=== PATIENT | male | born 1940 | race Caucasian/White ===

== ENCOUNTER 2018-03-27 08:37 | Day surgery (SDC) | payer OTHER ==
[~2018-03-27] VITALS: Ht 172.7 cm; Wt 75.3 kg
[~2018-03-27 08:37] MED LIST: ALBU90OI INH; ALBU90OI6 INH; ANORO ELLIPTA1 EACH INH; ASPI325 PO; ASPI81CH PO; ASPI81EC PO; ATOR10 PO; AZIT250 PO; Accuneb0.63 MG/3; Betapace120 MG PO; CALCA500CH PO; CEFD300 PO; DABI150C PO; DABI75 PO; DILT30 PO; FISH OIL 1,0001 EAC1 PO; FISH1000 PO; FLUSAL2505 INH; FURO40 PO; Hair, Skin & N1 EACH PO; IPRAIS; LISI20 PO; LISINOPRIL-? DOSE; LOSA50 PO; Lisinopril2.5 MG PO; MAGOXI400 PO; METO100ER PO; METO25 PO; MULTI VITAMIN1 EACH PO; MULVITMIND PO; POTCHL10ER PO; PRED10 PO; PRED20 PO; PROBIOTIC1 EAC3 PO; RANI150 PO; REPATHA SU140 MG/1 M SC; ROFL500T PO; ROSU10TA PO; SOTO80 PO; SPIR25 PO; TIOT18 IH; TRIPLE FLEX CA1 EACH PO; TUMS200 MG PO
--- NOTE | 2018-03-27 09:01 | NUR ---
History, Chart, Medications and Allergies reviewed before start of procedure. Patient confirms NPO status and agrees with scheduled surgery. Lungs clear T/O to Auscultation THOUGH DECREASED THROUGHOUT, 2L O2 HOME IN PLACE. Patient reports completing Chlorhexadine shower X2 prior to admission to hospital. Pre-Op teaching done. Pt verbalizes understanding. Patient States Post-Procedure ride home has been arranged.
--- NOTE | 2018-03-27 09:40 | NUR ---
TO BEDSIDE, TRACKER EXPLAINED AND QUESTIONS ANSWERED. BELONGINGS UNDER THE GURNEY TO INCLUDE PATIENT'S HOME O2 CONCENTRATION DEVICE. NEW O2 TUBING PLACED ON PATIENT AT ADMIT. COMFORT PROVIDED FOR AND UPDATE PROVIDED FOR PATIENT, CALL LIGHT IN REACH.
--- NOTE | 2018-03-27 10:18 | NUR ---
UP TO BR FOR UNMEASURED VOID.
--- NOTE | 2018-03-27 11:09 | NUR ---
1055- FAMILY UPDATED AND COMFORT PROVIDED FOR, REFRESHMENTS PROVIDED FOR AT BEDSIDE PER REQUEST.
--- NOTE | 2018-03-27 11:29 | NUR ---
PATIENT UP TO BR FOR ANOTHER UNMEASURED VOID.
--- NOTE | 2018-03-27 11:38 | NUR ---
REPORT TO ALICIA Long FOR BREAK.
--- NOTE | 2018-03-27 14:53 | NUR ---
Discharge instructions reviewed with patient. Patient verbalizes understanding. Copy given to patient to take home. Patient up to Ambulate independently. Gait steady. Patient States Post-Procedure ride home has been arranged. Discharged via wheelchair to private car for ride home.
== END 2018-03-27 22:55 | disposition home or self-care (01) ==
LOC: ORSCMMR 08:37 → SURS 08:37 → ORD 10:00 → ORSCMMR 10:00
PROVIDERS: Surgery
PROC: 0YU60JZ Supplement Left Inguinal Region with Synthetic Substitute, Open Approach (ICD-10-PCS; principal; 2018-03-27 10:00)
DX: K40.90 Unilateral inguinal hernia, without obstruction or gangrene, not specified as recurrent (principal); I10 Essential (primary) hypertension; I48.91 Unspecified atrial fibrillation; I25.10 Atherosclerotic heart disease of native coronary artery without angina pectoris; J44.9 Chronic obstructive pulmonary disease, unspecified; Z99.81 Dependence on supplemental oxygen; E78.00 Pure hypercholesterolemia, unspecified; Z87.891 Personal history of nicotine dependence; Z79.899 Other long term (current) drug therapy
CPT/HCPCS: C1781; J0690; J2250; J3010; J7120

== ENCOUNTER 2021-06-10 10:36 | Emergency (ER) | payer OTHER ==
[~2021-06-10] VITALS: Ht 172.7 cm; Wt 72.6 kg
[2021-06-10] MEDS ORDERED: NEBIVOLOL HCL20 MG PO (10:57)
== END 2021-06-10 12:23 | disposition home or self-care (01) ==
LOC: ER 10:36
DX: S09.90XA Unspecified injury of head, initial encounter (principal); I25.2 Old myocardial infarction; I48.91 Unspecified atrial fibrillation; J43.9 Emphysema, unspecified; Z86.73 Personal history of transient ischemic attack (TIA), and cerebral infarction without residual deficits; Z87.891 Personal history of nicotine dependence; Z88.2 Allergy status to sulfonamides; Z88.1 Allergy status to other antibiotic agents; Z88.8 Allergy status to other drugs, medicaments and biological substances; Z79.899 Other long term (current) drug therapy; Z79.82 Long term (current) use of aspirin; W01.0XXA Fall on same level from slipping, tripping and stumbling without subsequent striking against object, initial encounter
CPT/HCPCS: 70450

== ENCOUNTER 2022-03-02 11:51 | Emergency (ER) | payer OTHER ==
[~2022-03-02] VITALS: Ht 172.7 cm; Wt 73.0 kg
[~2022-03-02 11:51] MED LIST changes: +NEBIVOLOL HCL20 MG PO
[2022-03-02 12:38] LABS: BASOPHILS ABSOLUTE AUTO 0.03 K/mm3 (0.00-0.23); BASOPHILS PERCENT AUTO 0 % (0-2); EOSINOPHILS PERCENT AUTO 0 % (0-6); Hematocrit 36.8 % (37.0-53.0); Hemoglobin 11.8 g/dL (13.5-17.5); IMMATURE GRAN ABSOLUTE AUTO 0.08 K/mm3 (0.00-0.10); IMMATURE GRAN PERCENT AUTO 1 % (0-1); LYMPHOCYTES ABSOLUTE AUTO 0.48 K/mm3 (0.84-5.20); LYMPHOCYTES PERCENT AUTO 4 % (21-46); MONOCYTES ABSOLUTE AUTO 0.45 K/mm3 (0.16-1.47); MONOCYTES PERCENT AUTO 4 % (4-13); Mean Corpuscular HGB 25.7 pg (26.0-34.0); Mean Corpuscular HGB Conc 32.1 g/dL (31.5-36.5); Mean Corpuscular Volume 80 fL (80-100); Mean Platelet Volume 11.1 fL (9.1-12.4); NEUTROPHILS ABSOLUTE AUTO 10.24 K/mm3 (1.96-9.15); NEUTROPHILS PERCENT AUTO 91 % (41-73); Platelet Count 257 K/mm3 (150-400); RDW Coefficient Variation 17.5 % (11.7-14.2); RDW Standard Deviation 51.2 fL (35.1-46.3); White Blood Cell Count 11.28 K/mm3 (4.00-11.30)
[2022-03-02 12:45] LABS: Source, Urine Voided
[2022-03-02 12:49] LABS: Appearance, Urine Clear (Clear); Bilirubin, Urine Neg (Neg); Blood, Urine Neg (Neg); Color, Urine Yellow (P-Yellow); Glucose Qualitative, Urine Neg (Neg); Ketones, Urine Neg (Neg); Leukocyte Esterase, Urine Neg (Neg); Nitrite, Urine Neg (Neg); Protein, Urine Neg (Neg); Urobilinogen, Urine NORM (Normal)
[2022-03-02 12:55] LABS: Albumin, Blood 2.9 g/dL (3.4-5.0); Albumin/Globulin Ratio 0.9 (0.8-1.8); Bilirubin, Total 0.9 mg/dL (0.1-1.0); Bun/Creatinine Ratio 25.5 (12.0-20.0); Calcium, Blood 9.3 mg/dL (8.5-10.1); Creatinine, Blood 1.1 mg/dL (0.60-1.20); Globulin, Blood 3.4 g/dL (2.2-4.0); Potassium, Blood 3.8 mmol/L (3.5-5.5); Total Protein, Blood 6.3 g/dL (6.4-8.2)
[2022-03-02] MEDS ORDERED: OMEP20ER (13:24)
[2022-03-02] MEDS ORDERED: POTA8 (13:25)
[2022-03-02 15:50] LABS: Base Excess Venous 9.9 mmol/L; Bicarbonate Venous 32.1 mmol/L (24.0-30.0); PCO2 Venous 52.4 mmHg (38-42); pH Blood Venous 7.42 (7.34-7.37)
[2022-03-02] MEDS ORDERED: TORSE20 PO (16:42)
[2022-03-02] MEDS ORDERED: Flomax0.4 MG PO (16:43)
== END 2022-03-02 18:33 | disposition home or self-care (01) ==
LOC: ER 11:51
PROVIDERS: Emergency Medicine; Student in an Organized Health Care Education/Training Program
DX: I50.9 Heart failure, unspecified (principal); J81.1 Chronic pulmonary edema; J44.9 Chronic obstructive pulmonary disease, unspecified; I48.91 Unspecified atrial fibrillation; D64.9 Anemia, unspecified; R55 Syncope and collapse; I25.2 Old myocardial infarction; Z87.891 Personal history of nicotine dependence; Z88.2 Allergy status to sulfonamides; Z88.1 Allergy status to other antibiotic agents; Z79.899 Other long term (current) drug therapy; Z99.81 Dependence on supplemental oxygen
CPT/HCPCS: 36415; 71045; 80053; 81003; 82803; 83880; 85025; 93005; 93010; 93970; 94640; 94664; J1940; J2930

== ENCOUNTER 2022-03-13 11:56 | Inpatient (IN) | payer OTHER ==
[~2022-03-13] VITALS: Ht 172.7 cm; Wt 77.6 kg
[~2022-03-13 11:56] MED LIST changes: +Flomax0.4 MG PO; +Lasix40 MG PO; +METO5 PO; +OMEP20ER PO; +POTA8; +TORSE20 PO
[2022-03-13] MEDS ORDERED: ATROVENT HFA12.9 GM INH (12:24)
[2022-03-13] MEDS ORDERED: ANORO ELLIPTA1 EAC1 INH (12:26)
[2022-03-13 12:45] LABS: BASOPHILS ABSOLUTE AUTO 0.04 K/mm3 (0.00-0.23); BASOPHILS PERCENT AUTO 0 % (0-2); EOSINOPHILS PERCENT AUTO 0 % (0-6); Hemoglobin 11.2 g/dL (13.5-17.5); IMMATURE GRAN ABSOLUTE AUTO 0.09 K/mm3 (0.00-0.10); IMMATURE GRAN PERCENT AUTO 1 % (0-1); LYMPHOCYTES ABSOLUTE AUTO 0.15 K/mm3 (0.84-5.20); LYMPHOCYTES PERCENT AUTO 1 % (21-46); MONOCYTES PERCENT AUTO 3 % (4-13); Mean Corpuscular HGB 25.3 pg (26.0-34.0); Mean Corpuscular HGB Conc 31.1 g/dL (31.5-36.5); Mean Corpuscular Volume 81 fL (80-100); Mean Platelet Volume 12.5 fL (9.1-12.4); NEUTROPHILS PERCENT AUTO 96 % (41-73); Platelet Count 194 K/mm3 (150-400); RDW Standard Deviation 51.9 fL (35.1-46.3); Red Blood Cell Count 4.42 M/mm3 (4.30-5.90); White Blood Cell Count 15.38 K/mm3 (4.00-11.30)
[2022-03-13 12:57] LABS: Albumin, Blood 2.7 g/dL (3.4-5.0); Albumin/Globulin Ratio 0.8 (0.8-1.8); Bilirubin, Total 2.1 mg/dL (0.1-1.0); Bun/Creatinine Ratio 19.3 (12.0-20.0); Calcium, Blood 8.8 mg/dL (8.5-10.1); Creatinine, Blood 1.14 mg/dL (0.60-1.20); Globulin, Blood 3.4 g/dL (2.2-4.0); Magnesium, Blood 2.1 mg/dL (1.6-2.4); Total Protein, Blood 6.1 g/dL (6.4-8.2)
[2022-03-13 13:50] LABS: Source, Urine Foley catheter
[2022-03-13 14:01] LABS: Appearance, Urine Hazy (Clear); Bilirubin, Urine Neg (Neg); Blood, Urine 5+ (Neg); Color, Urine Yellow (P-Yellow); Glucose Qualitative, Urine Neg (Neg); Ketones, Urine Neg (Neg); Leukocyte Esterase, Urine 1+ (Neg); Nitrite, Urine Neg (Neg); Protein, Urine 2+ (Neg); Urobilinogen, Urine NORM (Normal)
[2022-03-13 14:23] LABS: Bacteria Few /hpf; Red Blood Cells, Urine TNTC /hpf (0-2); Squamous Epithelial Cells Few /hpf (Few)
[2022-03-13 14:35] LABS: Influenza B, PCR NEGATIVE (NEGATIVE); Resp Syncytial Virus, PCR NEGATIVE (NEGATIVE); SARS-Cov-2 (COVID-19) PCR, MMC NEGATIVE (NEGATIVE)
[2022-03-13 14:39] LABS: Influenza A, PCR POSITIVE (NEGATIVE)
[2022-03-13] MEDS ORDERED: DABI150C PO (15:04)
--- NOTE | 2022-03-13 17:30 | NUR ---
Telephone report received from Isabell; anticipate pt arrival to PCU 17 shortly.
--- NOTE | 2022-03-13 18:31 | NUR ---
Pt arrived to PCU, alert, oriented and pleasantly conversant. Kristi accompanied pt to room. Pt was slid over to bed in PCU 17 due to his weakness and hypoxia with minimal activity, per ED RN Isabell. His Spo2 95% dropped quickly to 85% during activity of rolling back and forth in bed and with conversation, while on 4 l/min of O2 delivery. He is now on 6 l/min of oxygen and spo2 is 87-94% while in bed, with conversation. Bumex IV was given just a few minutes ago. Atrial fibrillation, rate 80s noted by telemetry. Pt states that he is always in atrial fibrillation. Duncan catheter is draining clear yellow urine to collection bag. Pt states that it was placed last Friday in the ED when he came because he was unable to void. sTates he has had bladder cancer 3 times. Swelling noted of the tibia bilaterally, as well as ankles and pedal edema 3+. Heels and toes are very red, barely blanchable. Pt states that he sleeps a lot.
--- NOTE | 2022-03-13 19:00 | NUR ---
ASSUMED CARE NOTE: ASSSUMED CARE OF PT AT 1900. PT IS ALERT AND ORIENTED TO SELF/PLACE/FOLLOWING DIRECTIONS. PT IS FORGETFUL AT TIMES. STATES HE IS UNABLE TO TELL NIGHT/DAY APART. PT ALSO STATES HE IS GETTING EARLY DEMENTIA. PT DENIES ANY PAIN AT THIS TIME. GENERALIZED WEAKNESS T/O. PT IN AFIB WITH HR BETWEEN 90-110, BLOOD PRESSURES SOFT, MAP ABOVE 65. PT DENIES ANY ABDOMINAL TENDERNESS, ACTIVE BOWEL TONES NOTED IN ALL QUADRANTS. HERNANDEZ PATENT, DRAINING TO GRAVITY. WILL CONTINUE WITH PLAN OF CARE.
[2022-03-14 04:17] LABS: Hemoglobin 10.6 g/dL (13.5-17.5); Mean Corpuscular HGB 25.3 pg (26.0-34.0); Mean Corpuscular HGB Conc 31.2 g/dL (31.5-36.5); Mean Corpuscular Volume 81 fL (80-100); Mean Platelet Volume 11.7 fL (9.1-12.4); Platelet Count 184 K/mm3 (150-400); RDW Coefficient Variation 18.1 % (11.7-14.2); RDW Standard Deviation 52.3 fL (35.1-46.3); Red Blood Cell Count 4.19 M/mm3 (4.30-5.90); White Blood Cell Count 13.86 K/mm3 (4.00-11.30)
[2022-03-14 05:04] LABS: Bun/Creatinine Ratio 24.5 (12.0-20.0); Calcium, Blood 8.8 mg/dL (8.5-10.1); Creatinine, Blood 1.02 mg/dL (0.60-1.20); Potassium, Blood 3.1 mmol/L (3.5-5.5)
--- NOTE | 2022-03-14 06:39 | NUR ---
SHIFT SUMMARY: PT CONTINUES TO BE ALERT AND ORIENTED X 2, VERY FORGETFUL, NEEDS FREQUENT RE-ORIENTATION. PT IS RE-DIRECTABLE. PT HAS DENIED ANY PAIN T/O SHIFT. PT HAS BEEN IN AFIB T/O SHIFT. HR ELEVATED TO THE 150'S, 15MG OF CARDIZEM GIVEN FOR RATE CONTROL, HR DECREASED TO THE 90'S, HOWEVER BP DECLINED. PT C/O FEELING DIZZY AND LIGHTHEADED. CALLED RESIDENT, ORDERS TO ADMINISTER 500ML BOLUS OF NS, INFUSION GIVEN SLOWLY, NO EFFECT TO BP. INFORMED ORDERS FOR MIDODRINE GIVEN, BP HAS IMPROVED. PT C/O SOB NOW, BREATHING TREATMENT GIVEN PER MAY. PT IS WHEEZY TO BILATERAL UPPER LOBES, CRACKLES HEARD IN THE LOWER LOBES. PT HAS REMAINED IN 6-8L OF OXYGEN VIA HIGH-FLOW NASAL CANNULA TO MAINTAIN SPO2 ABOVE 90% PT HAS BEEN HAVING DRY COUGH. HERNANDEZ PATENT, DRAINING TO GRAVITY, GOOD URINE OUTPUT NOTED. PT REPOSITIONED Q2HRS. BED AT LOWEST LEVEL, CALL LIGHT WITHIN REACH.
--- NOTE | 2022-03-14 08:03 | NUR ---
Alert, oriented and appropriate in conversation. Sitting up in chair after working with OT. Eating breakfast, Spo2 84-92% during the activity. He states that he feels much better than he did yesterday. 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 Heart rate 108-120 during the activity.
--- NOTE | 2022-03-14 09:31 | NUR ---
Pt was OOB to chair, finished breakfast, then had BM on BSC, after which he was dyspneic, audibly wheezing and coarse breath sounds, diminished posteriorly. He then had his scheduled duoneb, after which his afib rate increased from 120s to 140-170 bpm. He said that he was feeling fine, but was tired and wanted to get back to bed. Assisted back to bed. Blood pressure was stable but 101 systolic, and heart rate continued to sustain at 140-[address] Glover and new order received from NS bolus and to d/c the IV bumex. Pt is now resting in bed, eyes closed, RR 24/min, even and unlabored. spo2 92-97% in 8 l/min, and heart rate is trending down, now 110-125 bpm. Blood pressure is stable.
--- NOTE | 2022-03-14 11:28 | NUR ---
Pt spo2 96-97% while lying in bed, on O2 4 l/min. Heart rate 97-110 bpm. Pt is tachypneic, audibly wheezing. Using abdominal muscles on expiration. He says that he feels it is difficult to breathe. RT Juan called. Physical therapist is beginning session with the pt at this time. RT here to give breathing tx at this time.
--- NOTE | 2022-03-14 11:35 | NUR ---
Pt states he is feeling better now that he's getting breathing tx.
[2022-03-15 03:54] LABS: Base Excess Venous 17.9 mmol/L; Bicarbonate Venous 39.1 mmol/L (24.0-30.0); PCO2 Venous 57.8 mmHg (38-42); pH Blood Venous 7.47 (7.34-7.37)
[2022-03-15 04:45] LABS: BASOPHILS ABSOLUTE AUTO 0.02 K/mm3 (0.00-0.23); BASOPHILS PERCENT AUTO 0 % (0-2); EOSINOPHILS PERCENT AUTO 0 % (0-6); Hematocrit 35.1 % (37.0-53.0); Hemoglobin 10.9 g/dL (13.5-17.5); IMMATURE GRAN ABSOLUTE AUTO 0.03 K/mm3 (0.00-0.10); IMMATURE GRAN PERCENT AUTO 0 % (0-1); LYMPHOCYTES ABSOLUTE AUTO 0.21 K/mm3 (0.84-5.20); LYMPHOCYTES PERCENT AUTO 3 % (21-46); MONOCYTES ABSOLUTE AUTO 0.32 K/mm3 (0.16-1.47); MONOCYTES PERCENT AUTO 4 % (4-13); Mean Corpuscular HGB 25.3 pg (26.0-34.0); Mean Corpuscular HGB Conc 31.1 g/dL (31.5-36.5); Mean Corpuscular Volume 81 fL (80-100); Mean Platelet Volume 12.5 fL (9.1-12.4); NEUTROPHILS ABSOLUTE AUTO 7.96 K/mm3 (1.96-9.15); NEUTROPHILS PERCENT AUTO 93 % (41-73); Platelet Count 191 K/mm3 (150-400); RDW Coefficient Variation 17.7 % (11.7-14.2); RDW Standard Deviation 52.2 fL (35.1-46.3); Red Blood Cell Count 4.31 M/mm3 (4.30-5.90); White Blood Cell Count 8.54 K/mm3 (4.00-11.30)
[2022-03-15 05:19] LABS: Calcium, Blood 8.9 mg/dL (8.5-10.1); Creatinine, Blood 0.89 mg/dL (0.60-1.20); Potassium, Blood 2.9 mmol/L (3.5-5.5)
--- NOTE | 2022-03-15 06:59 | NUR ---
PT CONFUSED OVERNIGHT BUT EASILY REORIENTED, AUDIBLE WHEEZING, WET, COARSE LUNG SOUNDS, CXRAY PENDING
--- NOTE | 2022-03-15 08:08 | NUR ---
98% spo2 on 5 l/min at rest, lying in bed. He is awake, a little disoriented at first, states he "thinks" that he is in [place], in hospital. States reason for this admission was "falling at home". After a few minutes he is able to recall the breakfast that he ate yesterday. Audible wheezing noted. Wheezes auscultated throughout, and coarse crackles posteriorly. Very moist cough noted, but pt is unable to bring the secretions up to his mouth. Assisted OOB to chair for breakfast. Spo2 to 86 % very briefly. AFter recovery on 6 l/min O2 delivery was titrated down to 3 l/min, and spo2 steady greater than 90% while sitting up in chair, drinking coffee.
--- NOTE | 2022-03-15 08:30 | NUR ---
Assisted up to bedside commode for BM.
--- NOTE | 2022-03-15 08:31 | NUR ---
Pt tolerated activity of bedside commode use, 6 l/min o2 delivery during the activity to maintain spo2. Heart rate 115-125 during the activity.
--- NOTE | 2022-03-15 11:43 | NUR ---
Spoke with pt's Kristi by phone. Given an update on the pt's condition. Kristi is staying home today because she thinks that she also has the flu.
--- NOTE | 2022-03-15 15:24 | NUR ---
Sitting up in recliner, watching TV. Legs elevated on pillows on stepstool. He states that he is comfortable. He called on the call light to ask if I had spoken with his today. He does not remember that I told him a few hours ago about my conversation with Kristi late morning today. He is using his incentive spirometer.
--- NOTE | 2022-03-15 15:35 | NUR ---
BLADDER training initiated.
--- NOTE | 2022-03-15 15:46 | NUR ---
Ambulatory to bathroom, about 15 feet from where he was sitting in recliner, using gait belt and geriwalker. Tolerated it well. heart rate 108-110 bpm. He is mildly short of breath during the activity, but able to talk.
--- NOTE | 2022-03-15 18:55 | NUR ---
HERNANDEZ UNCLAMPED. PT DENIES FEELING ANY BLADDER FULLNESS. 3OO CC URINE DRAINED INTO COLLECTION BAG. NOW SITTING ON BSC AGAIN FOR BM.
[2022-03-16 05:05] LABS: Bun/Creatinine Ratio 38.5 (12.0-20.0); Calcium, Blood 9.5 mg/dL (8.5-10.1); Creatinine, Blood 0.91 mg/dL (0.60-1.20); Potassium, Blood 3.5 mmol/L (3.5-5.5)
--- NOTE | 2022-03-16 06:05 | NUR ---
PT AWAKE ALL NIGHT, ANXIOUS, INCREASED OS [id number], UP TO BSC X1 AND HAD A BM, URINE IS TURNING DARK AND CONCENTRATED, HERNANDEZ CATH WAS CLAMPED FROM BEGINNING OF SHIFT UNTIL 0100 AND PT NEVER FELT ANY URGE, UNCLAMPED AT THAT TIME AND GOT 200, RECLAMPED AT 0500, HR AFIB IN THE 150'S WITH ANY EXERTION, EXTREMELY CONFUSED OVERNIGHT CALLING FOR SUSY, HIS , UNABLE TO FOLLOW DIRECTIONS FOR IS OR COUGH AND DEEP BREATHING, OTHERWISE VSS AND PT AFEBRILE
--- NOTE | 2022-03-16 19:21 | NUR ---
END OF SHIFT NOTE PT A&O TO SELF, PLACE & FAMILY. PT VERY FORGETFUL, CALLING OUT FOR "SUSY" THOUGH PT REMINDED MULTIPLE TIMES SUSY NOT HERE. PT VSS. MONITOR SHOWING AFIB, HR 90s-130s. ATTEMPT TO TITRATE PT DOWN ON O2, BUT PT NOT TOLERATING WELL. PT DOWN TO 8L HI-CABRERA NC FOR SHORT TIME, BUT REQUIRING 12-15L HI-CABRERA NC MAJORITY OF SHIFT. PT DIFFICULTY MAINTAING SATURATION. RT PROVIDING BREATHING TXs & PT USING INCENTIVE SPIROMETER.
--- NOTE | 2022-03-17 06:00 | NUR ---
PT REQUIRED NEARLY CONSTANT SUPERVISION OVERNIGHT, CONFUSED AND AGITATED, PULLING AT LINES AND WIRES, YELLING OUT, HE FINALLY WENT TO SLEEP AT 0500 THIS AM, ATTEMPTS TO REORIENT ONLY LASTING A COUPLE OF MINUTES AT A TIME, O2 WEANED DOWN TO 10LPM AFTER PT STARTED RESTING, HR IS AFIB WITH RATES FROM 100-150, UO 600CC AND PVR OBTAINED X 2, FIRST ONE WAS 275 AND THE SECOND WAS 310, ONE BM OVERNIGHT AND NO PRN'S
--- NOTE | 2022-03-17 12:07 | NUR ---
SHIFT SUMMARY ASSUMED CARE OF PT @ 0700. PT INITIALLY ALERT TO PERSON, PLACE AND YEAR, FOLLOWING COMMANDS. AROUND 0830 PT BECAME UNRESPONSIVE DURING A TURN WITH LUGGER AND ANOTHER NURSE. PT UNABLE TO MOVE LEFT SIDE, NON-VERBAL. HOSPITALIST NOTIFIED AND CAME TO BEDSIDE, SUSPECTING A STROKE, PT HAS HX OF CVA. PTS SPOUSE CONTACTED BY HOSPITALIST AND ADVISED TO COME TO BEDSIDE PT IS PASSING. PT SPOUSE GAVE VERBAL AGREEMENT FOR PT TO BE PLACED ON COMFORT CARE. APPROXIMATELY 1 HR LATER PT DID REGAIN SOME MOVEMENT OF L SIDE AND WAS ABLE TO SPEAK WITH A SLUR. PTS SPOUSE AT BEDSIDE AND PT STATED HE IS READY TO . SPOUSE ADVISED THIS NURSE AND PHYSICIAN THAT PT HAD LOOKED INTO WITH [facility] IN THE PAST BUT DIDN'T FOLLOW THROUGH WITH IT. THIS NURSE ATTEMPTED A BEDSIDE SWALLOW EVAL PT SEEMED TO BE RALLYING, PT FAILED SWALLOW EVAL. PT FELL BACK ASLEEP AND TOD CONFIRMED AT 1200 BY THIS NURSE AND ALYSSA CRUZ. HOSPITALIST NOTIFIED, CONTACTING [employer] AT THIS TIME.
== END 2022-03-17 20:30 | DRG 193 ==
LOC: ER 11:56 → PCU 15:25
PROVIDERS: Emergency Medicine; Internal Medicine; ADMIT Internal Medicine
PROC: 5A0935A Assistance with Respiratory Ventilation, Less than 24 Consecutive Hours, High Flow/Velocity Cannula (ICD-10-PCS; principal; 2022-03-16)
DX: J10.08 Influenza due to other identified influenza virus with other specified pneumonia (principal); I63.9 Cerebral infarction, unspecified; J96.21 Acute and chronic respiratory failure with hypoxia; I48.20 Chronic atrial fibrillation, unspecified; E27.40 Unspecified adrenocortical insufficiency; E44.0 Moderate protein-calorie malnutrition; I50.32 Chronic diastolic (congestive) heart failure; E87.20 Acidosis, unspecified; G81.94 Hemiplegia, unspecified affecting left nondominant side; J15.9 Unspecified bacterial pneumonia; J12.9 Viral pneumonia, unspecified; J44.0 Chronic obstructive pulmonary disease with (acute) lower respiratory infection; J44.1 Chronic obstructive pulmonary disease with (acute) exacerbation; Z66 Do not resuscitate; I95.9 Hypotension, unspecified; E86.1 Hypovolemia; E86.0 Dehydration; K21.9 Gastro-esophageal reflux disease without esophagitis; E87.6 Hypokalemia; J20.9 Acute bronchitis, unspecified; E78.5 Hyperlipidemia, unspecified; I25.10 Atherosclerotic heart disease of native coronary artery without angina pectoris; I11.0 Hypertensive heart disease with heart failure; I71.40 Abdominal aortic aneurysm, without rupture, unspecified; N40.0 Benign prostatic hyperplasia without lower urinary tract symptoms; R33.8 Other retention of urine; Z20.822 Contact with and (suspected) exposure to COVID-19; Z99.81 Dependence on supplemental oxygen; Z79.01 Long term (current) use of anticoagulants; Z85.46 Personal history of malignant neoplasm of prostate; Z85.51 Personal history of malignant neoplasm of bladder; I25.2 Old myocardial infarction; Z95.5 Presence of coronary angioplasty implant and graft; Z68.26 Body mass index [BMI] 26.0-26.9, adult; Z98.890 Other specified postprocedural states; Z88.2 Allergy status to sulfonamides; Z88.1 Allergy status to other antibiotic agents; Z88.8 Allergy status to other drugs, medicaments and biological substances; Z79.899 Other long term (current) drug therapy; Z79.02 Long term (current) use of antithrombotics/antiplatelets; Z79.52 Long term (current) use of systemic steroids; Z87.891 Personal history of nicotine dependence
CPT/HCPCS: 0241U; 36415; 71045; 80048; 80053; 81001; 82803; 83605; 83735; 83880; 84145; 84484; 85025; 85027; 87040; 87086; 93005; 93010; 94640; 94664; 94760; 94762; 96365; 96375; 97110; 97116; 97162; 97166; 97530; 97535; 99285-25; A9270; J0456; J0696; J1720; J7030; J7040; J7050; J7512